=== PATIENT | male | born 1990 | race Caucasian/White ===

== ENCOUNTER 2019-01-15 13:31 | Emergency (ER) | payer SELFPAY ==
[~2019-01-15] VITALS: Ht 195.6 cm; Wt 88.5 kg
[2019-01-15 13:48] VITALS: BP 114/71
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
--- NOTE | 2019-01-15 14:20 | NUR ---
ED Nurse Note: pt went to ct with tech
--- NOTE | 2019-01-15 14:28 | NUR ---
ED Nurse Note: pt went back from ct with tech
--- NOTE | 2019-01-15 14:57 | Diagnostic Imaging Report ---
Indications: Pain, trauma Technique: Spiral images obtained through the facial bones. No IV contrast utilized. Multiplanar reconstructions were generated.Total dose length product 657.78 mGycm. CTDIvol(s) 28.19 mGy. Dose reduction achieved using automated exposure control Comparison: none Findings: There is a minimally displaced fracture of the nasal bone, worse on the left than on the right. No other facial fracture demonstrated. No worrisome sinus air-fluid levels. The nasal septum is intact. There may be a fracture of the nasal process of the maxilla, nondisplaced hip real. Only minimal soft tissue swelling is demonstrated. The included intracranial structures are unremarkable. The optic globes are intact. The retroseptal orbits are intact. Small polyps or mucus retention cysts are seen in the maxillary sinuses bilaterally. The dentition is intact. Impression: Positive for nasal fracture Possible fracture of the nasal process of the maxilla Right maxillary sinus disease The CT scanner at [facility] is accredited by the [employer] and the scans are performed using protocols designed to limit radiation exposure to as low as reasonably achievable to attain images of sufficient resolution adequate for diagnostic evaluation.
[2019-01-15] MEDS ORDERED: NAPROXEN500 M2 ORAL (14:59)
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
[2019-01-15 15:13] VITALS: BP 125/85
--- NOTE | 2019-01-15 15:15 | NUR ---
ER DISCHARGE NOTE: Patient is cleared to be discharged per ERMD, pt is aox4, on room air, with stable vital signs. pt was given dc and prescription instructions, pt was able to verbalize understanding, pt id band. pt is able to ambulate with steady gait. pt took all belongings.
== END 2019-01-15 15:15 | disposition home or self-care (01) ==
LOC: EMR 13:50
DX: S02.2XXA Fracture of nasal bones, initial encounter for closed fracture (principal); J32.0 Chronic maxillary sinusitis; Y04.2XXA Assault by strike against or bumped into by another person, initial encounter
CPT/HCPCS: 70486; 99284